=== PATIENT | female | born 1990 ===

== ENCOUNTER 2018-07-29 16:49 | Emergency (ER) | payer OTHER ==
--- NOTE | 2018-07-29 19:06 | ED ---
Abdominal Pain/Female - HPI Summary HPI Summary: 28 yo female p/w RLQ pain started this AMafter her period started but pain is more discrete to the RLQ, denies f/c/n/v - History of Current Complaint Chief Complaint: UCAbdominalPain Stated Complaint: ABDOMINAL PAIN Time Seen by Provider: 07/29/18 18:51 Hx Obtained From: Patient Hx Last Menstrual Period: [id number] Onset/Duration: Sudden Onset Timing: Intermittent Episode Lasting Severity Initially: Moderate Severity Currently: Moderate Pain Intensity: 2 Allergies/Adverse Reactions: Allergies Allergy/AdvReac Type Severity Reaction Status Date / Time alcohol Allergy Rash Verified 07/29/18 17:37 Home Medications: Home Medications NK [No Home Medications Reported] 07/29/18 [History Confirmed 07/29/18] PMH/Surg Hx/FS Hx/Imm Hx Infectious Disease History: No Infectious Disease History: Denies: Traveled Outside the [place] in Last 30 Days - Social History Alcohol Use: None Substance Use Type: Reports: None Smoking Status (MU): Never Smoked Tobacco Review of Systems - ROS Summary Review of Systems Summary: Constitutional: Negative Skin: Negative Eyes: Negative ENT: Negative Cardiovascular: Negative Respiratory: Negative Gastrointestinal: RLQ pain Genitourinary: Negative Musculoskeletal: Negative Neurological: Negative Psychological: Normal All Other Systems Reviewed And Are Negative: Yes All Other Systems Reviewed And Are Negative: Yes Physical Exam - Summary Physical Exam Summary: Triage Information Reviewed: Yes Appearance: No Pain Distress Eye Exam: Normal ENT Exam: Normal Neck: Supple Respiratory: Lungs clear, Normal breath sounds Cardiovascular: Positive: RRR, S1, S2 Abdominal Exam: acute RLQ tenderness, moderate inferior to Mcburney's point Musculoskeletal Exam: Normal Neurological Exam: CN 2-12 grossly intact Psychological Exam: Normal Skin Exam: Normal Triage Information Reviewed: Yes Vital Signs On Initial Exam: Initial Vitals Temp Pulse Resp BP Pulse Ox 37.1 C 68 16 112/74 100 07/29/18 17:31 07/29/18 17:31 07/29/18 17:31 07/29/18 17:31 07/29/18 17:31 Diagnostics - Vital Signs Vital Signs Temp Pulse Resp BP Pulse Ox 07/29/18 17:31 37.1 C 68 16 112/74 100 - Laboratory Lab Statement: Any lab studies that have been ordered have been reviewed, and results considered in the medical decision making process. Abdominal Pain Fem Course/Dx - Course Course Of Treatment: CT abd and pelvis NEg for acute appendicitis without pelvic pathology, may be recent hormonal influence on follicular stimulation, follow up with [facility] - Diagnoses Provider Diagnoses: RLQ abdominal pain Discharge - Sign-Out/Discharge Documenting (check all that apply): Patient Departure All imaging exams completed and their final reports reviewed: Yes - Discharge Plan Condition: Stable Disposition: HOME Patient Education Materials: Acute Abdominal Pain (ED) - Billing Disposition and Condition Condition: STABLE Disposition: Home
== END 2018-07-29 20:55 | disposition home or self-care (01) ==
LOC: UCEAST 16:49
DX: R10.31 Right lower quadrant pain (principal); Z91.09 Other allergy status, other than to drugs and biological substances
CPT/HCPCS: 74176; 99202; G0463